=== PATIENT | female | born 1975 | race Caucasian/White ===

== ENCOUNTER 2022-09-15 17:59 | Inpatient (IN) | payer OTHER ==
[2022-09-15 18:05] VITALS: BMI 24.7
[2022-09-15 19:53] LABS: BASO % 0.4 % (0-2.0); EOS % 2.7 % (0-4.5); HEMATOCRIT 33.5 % (32.4-45.2); HEMOGLOBIN 10.9 GM/dL (10.7-15.3); LYMPH % 26.8 % (8-40); MCHC 32.6 g/dl (32.0-36.0); MEAN CELL VOLUME 82.9 fl (80-96); MEAN PLT VOLUME 8.6 fl (7.5-11.1); MONO % 5.2 % (3.8-10.2); NEUT % 64.9 % (42.8-82.8); RBC 4.04 M/mm3 (3.60-5.2); RDW 14.7 % (11.6-15.6); WHITE BLOOD COUNT 5.3 K/mm3 (4.0-10.0)
[2022-09-15 20:14] LABS: BLOOD UREA NITROGEN 24.5 mg/dL (7-18)
[2022-09-15 20:15] LABS: ALBUMIN 3.2 g/dl (3.4-5.0)
[2022-09-15 20:17] LABS: CREATININE 0.5 mg/dL (0.55-1.3)
[2022-09-15 20:19] LABS: BILIRUBIN,TOTAL 0.2 mg/dL (0.2-1); TOT PROT 7.6 g/dl (6.4-8.2)
[2022-09-15 20:22] LABS: N-TERMINAL BNP 81.2 pg/ml (5-125)
[2022-09-15 20:54] LABS: PLATELET COUNT 8 10^3/uL (134-434)
[2022-09-15 21:03] LABS: ERYTHROCYTE SEDIMENTATION RATE 74 mm/hr (0-20)
[2022-09-15 21:16] LABS: PH,URINE 5.5 (5.0-8.0); URINE APPEARANCE CLEAR; URINE BILIRUBIN NEGATIVE (NEGATIVE); URINE COLOR YELLOW; URINE GLUCOSE (UA) NEGATIVE (NEGATIVE); URINE KETONE NEGATIVE (NEGATIVE); URINE LEUK ESTERASE NEGATIVE (NEGATIVE); URINE NITRITE NEGATIVE (NEGATIVE); URINE PROTEIN NEGATIVE (NEGATIVE); URINE UROBILINOGEN 0.2 mg/dL (0.2-1.0)
[2022-09-15 21:37] LABS: INR 1.17 (0.83-1.09); PROTHROMBIN TIME (PATIENT) 13.5 SEC (9.7-13.0)
[2022-09-15 21:40] LABS: ACTIVATED PTT 28.5 SECONDS (25.2-36.5)
[2022-09-16] MEDS ORDERED: DEXAMETHASONE SOD PHOSPHATE 10 MG/1 ML VIAL IVPUSH ONE (00:53)
[2022-09-16] MEDS ORDERED: DEXAMETHASONE SOD PHOSPHATE 10 MG/1 ML VIAL ONE (01:41)
[2022-09-16 03:20] LABS: HEPATITIS B SURFACE AG MATERN NON-REACTIVE (NONREACTIVE)
[2022-09-16 03:48] LABS: HIV INTERPRETATION NEGATIVE (NEGATIVE)
[2022-09-16 09:34] LABS: HEMATOCRIT 34.6 % (32.4-45.2); HEMOGLOBIN 11.4 GM/dL (10.7-15.3); MCH 26.9 pg (25.7-33.7); MCHC 32.9 g/dl (32.0-36.0); MEAN CELL VOLUME 81.8 fl (80-96); RBC 4.23 M/mm3 (3.60-5.2); RDW 14.2 % (11.6-15.6); WHITE BLOOD COUNT 6.2 K/mm3 (4.0-10.0)
[2022-09-16 09:42] LABS: MEAN PLT VOLUME 8.7 fl (7.5-11.1)
[2022-09-16] MEDS ORDERED: ENOXAPARIN NA (PORCINE) 40 MG/0.4 ML DISP.SYRIN SQ SCH (10:00)
[2022-09-16] MEDS ORDERED: DEXAMETHASONE SOD PHOSPHATE 20 MG/5 ML VIAL IVPB SCH (10:00)
[2022-09-16 10:22] LABS: BLOOD UREA NITROGEN 15.2 mg/dL (7-18); CALCIUM 9.5 mg/dL (8.5-10.1)
[2022-09-16 10:23] LABS: ALBUMIN 3.3 g/dl (3.4-5.0)
[2022-09-16 10:26] LABS: CREATININE 0.6 mg/dL (0.55-1.3)
[2022-09-16 10:27] LABS: BILIRUBIN,TOTAL 0.6 mg/dL (0.2-1); TOT PROT 7.9 g/dl (6.4-8.2)
[2022-09-16 11:13] LABS: PLATELET COUNT 8 10^3/uL (134-434)
[2022-09-17 09:58] LABS: BASO % 0.2 % (0-2.0); EOS % 0.9 % (0-4.5); HEMATOCRIT 32.1 % (32.4-45.2); HEMOGLOBIN 10.4 GM/dL (10.7-15.3); LYMPH % 22.5 % (8-40); MCH 26.7 pg (25.7-33.7); MCHC 32.3 g/dl (32.0-36.0); MEAN CELL VOLUME 82.6 fl (80-96); MONO % 3.4 % (3.8-10.2); RBC 3.88 M/mm3 (3.60-5.2); RDW 14.5 % (11.6-15.6); WHITE BLOOD COUNT 7.6 K/mm3 (4.0-10.0)
[2022-09-17 10:01] LABS: MEAN PLT VOLUME 8.6 fl (7.5-11.1)
[2022-09-17 10:15] LABS: BLOOD UREA NITROGEN 16.5 mg/dL (7-18); CALCIUM 8.8 mg/dL (8.5-10.1)
[2022-09-17 10:18] LABS: CREATININE 0.7 mg/dL (0.55-1.3)
[2022-09-17] MEDS: DEXAMETHASONE SOD PHOSPHATE/PF 10 MG/ML SDV IVPB SCH (10:27)
[2022-09-17 10:40] LABS: HEPATITIS B SURFACE AG MATERN NON-REACTIVE (NONREACTIVE)
[2022-09-17] MEDS: POTASSIUM CHLORIDE TABS 20 MEQ TABLET.ER (FP) PO SCH (11:49)
[2022-09-17 12:00] LABS: PLATELET COUNT 7 10^3/uL (134-434)
[2022-09-17] MEDS: FAMOTIDINE 20 MG TABLET PO SCH (15:06)
[2022-09-17 15:23] LABS: MAGNESIUM 1.7 mg/dL (1.8-2.4)
[2022-09-17 15:26] LABS: PHOSPHOROUS 2.9 mg/dL (2.5-4.9)
[2022-09-17 15:47] LABS: ERYTHROCYTE SEDIMENTATION RATE 90 mm/hr (0-20)
[2022-09-18 08:33] LABS: BASO % 0.1 % (0-2.0); HEMATOCRIT 32.6 % (32.4-45.2); LYMPH % 24.8 % (8-40); MCH 27.5 pg (25.7-33.7); MCHC 33.6 g/dl (32.0-36.0); MEAN CELL VOLUME 81.8 fl (80-96); MONO % 4.6 % (3.8-10.2); NEUT % 70.5 % (42.8-82.8); RBC 3.99 M/mm3 (3.60-5.2); RDW 14.3 % (11.6-15.6); WHITE BLOOD COUNT 8.2 K/mm3 (4.0-10.0)
[2022-09-18 08:38] LABS: MEAN PLT VOLUME 10.5 fl (7.5-11.1)
[2022-09-18 09:14] LABS: CALCIUM 9.3 mg/dL (8.5-10.1)
[2022-09-18 09:17] LABS: CREATININE 0.4 mg/dL (0.55-1.3)
[2022-09-18 09:21] LABS: PLATELET COUNT 10 10^3/uL (134-434)
[2022-09-18] MEDS: FAMOTIDINE 20 MG TABLET PO SCH (09:42)
[2022-09-18] MEDS: POTASSIUM CHLORIDE TABS 20 MEQ TABLET.ER (FP) PO SCH (11:55)
[2022-09-18] MEDS: DEXAMETHASONE SOD PHOSPHATE/PF 10 MG/ML SDV IVPB SCH (12:00)
[2022-09-19 09:01] LABS: BASO % 0.1 % (0-2.0); HEMATOCRIT 35.3 % (32.4-45.2); HEMOGLOBIN 11.4 GM/dL (10.7-15.3); LYMPH % 24.6 % (8-40); MCHC 32.4 g/dl (32.0-36.0); MEAN CELL VOLUME 83.4 fl (80-96); NEUT % 72.3 % (42.8-82.8); RBC 4.23 M/mm3 (3.60-5.2); RDW 14.7 % (11.6-15.6); WHITE BLOOD COUNT 8.7 K/mm3 (4.0-10.0)
[2022-09-19 09:05] LABS: MEAN PLT VOLUME 8.6 fl (7.5-11.1)
[2022-09-19 09:28] LABS: ALBUMIN 3.2 g/dl (3.4-5.0); BLOOD UREA NITROGEN 18.6 mg/dL (7-18); CALCIUM 9.6 mg/dL (8.5-10.1)
[2022-09-19 09:31] LABS: CREATININE 0.6 mg/dL (0.55-1.3)
[2022-09-19 09:33] LABS: BILIRUBIN,TOTAL 0.2 mg/dL (0.2-1); TOT PROT 7.6 g/dl (6.4-8.2)
[2022-09-19 09:42] LABS: PLATELET COUNT 8 10^3/uL (134-434)
[2022-09-19] MEDS: FAMOTIDINE 20 MG TABLET PO SCH (09:46)
[2022-09-19] MEDS: POTASSIUM CHLORIDE TABS 20 MEQ TABLET.ER (FP) PO SCH (09:46)
[2022-09-19] MEDS: DEXAMETHASONE SOD PHOSPHATE/PF 10 MG/ML SDV IVPB SCH (09:49)
[2022-09-19 21:06] LABS: ATYPICAL pANCA <1:20 titer (Neg:<1:20); C-ANCA <1:20 titer (Neg:<1:20)
[2022-09-20 09:22] LABS: HEMATOCRIT 37.2 % (32.4-45.2); MCH 26.6 pg (25.7-33.7); MCHC 32.3 g/dl (32.0-36.0); MEAN CELL VOLUME 82.6 fl (80-96); MEAN PLT VOLUME 10.5 fl (7.5-11.1); RBC 4.51 M/mm3 (3.60-5.2); RDW 14.6 % (11.6-15.6); WHITE BLOOD COUNT 13.3 K/mm3 (4.0-10.0)
[2022-09-20 09:48] LABS: CALCIUM 9.2 mg/dL (8.5-10.1)
[2022-09-20 09:51] LABS: CREATININE 0.7 mg/dL (0.55-1.3)
[2022-09-20 09:59] LABS: PLATELET COUNT 26 10^3/uL (134-434)
[2022-09-20] MEDS: FAMOTIDINE 20 MG TABLET PO SCH (10:25)
[2022-09-20] MEDS: POTASSIUM CHLORIDE TABS 20 MEQ TABLET.ER (FP) PO SCH (10:25)
[2022-09-21 09:15] LABS: HEMATOCRIT 36.2 % (32.4-45.2); HEMOGLOBIN 12.1 GM/dL (10.7-15.3); MCH 27.4 pg (25.7-33.7); MCHC 33.4 g/dl (32.0-36.0); MEAN CELL VOLUME 82.1 fl (80-96); MEAN PLT VOLUME 10.8 fl (7.5-11.1); RBC 4.41 M/mm3 (3.60-5.2); RDW 14.5 % (11.6-15.6)
[2022-09-21 09:35] LABS: PLATELET COUNT 21 10^3/uL (134-434)
[2022-09-21 09:36] LABS: CALCIUM 8.9 mg/dL (8.5-10.1)
[2022-09-21 09:37] LABS: BLOOD UREA NITROGEN 18.1 mg/dL (7-18)
[2022-09-21 09:40] LABS: CREATININE 0.6 mg/dL (0.55-1.3)
[2022-09-21 09:41] LABS: BILIRUBIN,TOTAL 0.2 mg/dL (0.2-1); TOT PROT 6.8 g/dl (6.4-8.2)
[2022-09-21 10:08] LABS: ANISOCYTOSIS 0; HELMET CELLS 0; HOWELL-JOLLY BODIES 0; MACROCYTOSIS 0; OVALOCYTE 0; ROULEAU 0; SICKELED CELLS 0; TARGET CELLS 0; TEAR DROP CELLS 0; TOXIC GRANULATION 0
[2022-09-21] MEDS: POTASSIUM CHLORIDE TABS 20 MEQ TABLET.ER (FP) PO SCH (10:27)
[2022-09-21] MEDS: FAMOTIDINE 20 MG TABLET PO SCH (10:27)
[2022-09-21] MEDS: DEXAMETHASONE SOD PHOSPHATE 10 MG/1 ML VIAL IVPB SCH (19:46)
[2022-09-22] MEDS: FAMOTIDINE 20 MG TABLET PO SCH (09:08)
[2022-09-22] MEDS: POTASSIUM CHLORIDE TABS 20 MEQ TABLET.ER (FP) PO SCH (09:08)
[2022-09-22 16:35] LABS: BASO % 0.2 % (0-2.0); HEMATOCRIT 32.9 % (32.4-45.2); HEMOGLOBIN 10.9 GM/dL (10.7-15.3); LYMPH % 15.9 % (8-40); MCH 27.3 pg (25.7-33.7); MCHC 33.2 g/dl (32.0-36.0); MEAN CELL VOLUME 82.2 fl (80-96); MEAN PLT VOLUME 12.6 fl (7.5-11.1); NEUT % 77.9 % (42.8-82.8); RDW 14.3 % (11.6-15.6); WHITE BLOOD COUNT 10.6 K/mm3 (4.0-10.0)
[2022-09-22 16:41] LABS: PLATELET COUNT 36 10^3/uL (134-434)
[2022-09-22 16:46] LABS: CALCIUM 8.7 mg/dL (8.5-10.1)
[2022-09-22 16:47] LABS: ALBUMIN 2.9 g/dl (3.4-5.0); BLOOD UREA NITROGEN 18.5 mg/dL (7-18)
[2022-09-22 16:50] LABS: CREATININE 0.6 mg/dL (0.55-1.3)
[2022-09-22 16:52] LABS: BILIRUBIN,TOTAL 0.2 mg/dL (0.2-1); TOT PROT 6.7 g/dl (6.4-8.2)
[2022-09-22] MEDS: DEXAMETHASONE SOD PHOSPHATE 10 MG/1 ML VIAL IVPB SCH ×2 (18:54→19:11)
[2022-09-23 09:25] LABS: BASO % 0.1 % (0-2.0); HEMATOCRIT 35.3 % (32.4-45.2); HEMOGLOBIN 11.9 GM/dL (10.7-15.3); LYMPH % 15.1 % (8-40); MCH 27.9 pg (25.7-33.7); MCHC 33.7 g/dl (32.0-36.0); MEAN CELL VOLUME 82.7 fl (80-96); MEAN PLT VOLUME 11.2 fl (7.5-11.1); MONO % 2.7 % (3.8-10.2); NEUT % 82.1 % (42.8-82.8); RBC 4.26 M/mm3 (3.60-5.2); RDW 14.3 % (11.6-15.6); WHITE BLOOD COUNT 9.1 K/mm3 (4.0-10.0)
[2022-09-23 09:33] LABS: PLATELET COUNT 33 10^3/uL (134-434)
[2022-09-23] MEDS: POTASSIUM CHLORIDE TABS 20 MEQ TABLET.ER (FP) PO SCH ×2 (10:11→11:18)
[2022-09-23] MEDS: FAMOTIDINE 20 MG TABLET PO SCH (10:11)
[2022-09-23 10:33] LABS: ALBUMIN 3.3 g/dl (3.4-5.0); BLOOD UREA NITROGEN 18.1 mg/dL (7-18); CALCIUM 9.2 mg/dL (8.5-10.1)
[2022-09-23 10:36] LABS: CREATININE 0.7 mg/dL (0.55-1.3)
[2022-09-23 10:37] LABS: BILIRUBIN,TOTAL 0.3 mg/dL (0.2-1); TOT PROT 7.6 g/dl (6.4-8.2)
[2022-09-23 14:09] LABS: PARV B19 IGG 4.2 index (0.0-0.8); PARV B19 IGM 0.2 index (0.0-0.8)
[2022-09-23] MEDS: DEXAMETHASONE SOD PHOSPHATE 10 MG/1 ML VIAL IVPB SCH (18:39)
[2022-09-24 08:47] LABS: ALBUMIN 3.2 g/dl (3.4-5.0); BLOOD UREA NITROGEN 19.2 mg/dL (7-18)
[2022-09-24 08:50] LABS: CREATININE 0.6 mg/dL (0.55-1.3)
[2022-09-24 08:52] LABS: BILIRUBIN,TOTAL 0.5 mg/dL (0.2-1); TOT PROT 7.5 g/dl (6.4-8.2)
[2022-09-24] MEDS: POTASSIUM CHLORIDE TABS 20 MEQ TABLET.ER (FP) PO SCH ×2 (09:01→10:50)
[2022-09-24] MEDS: FAMOTIDINE 20 MG TABLET PO SCH (09:01)
[2022-09-24 09:06] LABS: HEMATOCRIT 34.9 % (32.4-45.2); HEMOGLOBIN 11.7 GM/dL (10.7-15.3); MCH 27.5 pg (25.7-33.7); MCHC 33.4 g/dl (32.0-36.0); MEAN CELL VOLUME 82.3 fl (80-96); MEAN PLT VOLUME 12.8 fl (7.5-11.1); PLATELET COUNT 48 10^3/uL (134-434); RBC 4.24 M/mm3 (3.60-5.2); RDW 14.8 % (11.6-15.6); WHITE BLOOD COUNT 9.1 K/mm3 (4.0-10.0)
[2022-09-24 10:45] LABS: ANISOCYTOSIS 0; MACROCYTOSIS 0
[2022-09-24] MEDS: DEXAMETHASONE SOD PHOSPHATE 10 MG/1 ML VIAL IVPB SCH ×2 (22:21→22:28)
[2022-09-24] MEDS ORDERED: DEXAMETHASONE SOD PHOSPHATE 10 MG/1 ML VIAL ONE (22:25)
[2022-09-25] MEDS: FAMOTIDINE 20 MG TABLET PO SCH (09:20)
[2022-09-25 09:25] LABS: HEMATOCRIT 37.4 % (32.4-45.2); HEMOGLOBIN 12.5 GM/dL (10.7-15.3); RBC 4.54 M/mm3 (3.60-5.2); WHITE BLOOD COUNT 7.6 K/mm3 (4.0-10.0)
[2022-09-25 09:26] LABS: BASO % 0.2 % (0-2.0); EOS % 0.3 % (0-4.5); LYMPH % 24.6 % (8-40); MCH 27.5 pg (25.7-33.7); MCHC 33.3 g/dl (32.0-36.0); MEAN CELL VOLUME 82.5 fl (80-96); MONO % 1.5 % (3.8-10.2); NEUT % 73.4 % (42.8-82.8)
[2022-09-25 09:28] LABS: MEAN PLT VOLUME 12.8 fl (7.5-11.1); PLATELET COUNT 71 10^3/uL (134-434)
[2022-09-25] MEDS: POTASSIUM CHLORIDE TABS 20 MEQ TABLET.ER (FP) PO SCH (11:23)
[2022-09-25 11:37] LABS: PLATELET ESTIMATE ADEQUATE
[2022-09-25] MEDS: ACETAMINOPHEN 325 MG TABLET (FP) PO PRN (22:43)
[2022-09-26 09:12] LABS: HEMATOCRIT 35.9 % (32.4-45.2); HEMOGLOBIN 11.8 GM/dL (10.7-15.3); MCH 27.3 pg (25.7-33.7); MCHC 32.9 g/dl (32.0-36.0); MEAN CELL VOLUME 83.1 fl (80-96); MEAN PLT VOLUME 13.8 fl (7.5-11.1); PLATELET COUNT 80 10^3/uL (134-434); RBC 4.32 M/mm3 (3.60-5.2); RDW 15.2 % (11.6-15.6); WHITE BLOOD COUNT 10.8 K/mm3 (4.0-10.0)
[2022-09-26] MEDS: FAMOTIDINE 20 MG TABLET PO SCH (09:48)
[2022-09-26] MEDS: POTASSIUM CHLORIDE TABS 20 MEQ TABLET.ER (FP) PO SCH (09:48)
[2022-09-26 10:35] LABS: ANISOCYTOSIS 0; HELMET CELLS 0; HOWELL-JOLLY BODIES 0; MACROCYTOSIS 0; OVALOCYTE 0; ROULEAU 0; SICKELED CELLS 0; TARGET CELLS 0; TEAR DROP CELLS 0; TOXIC GRANULATION 0
[2022-09-26 10:39] LABS: ALBUMIN 2.9 g/dl (3.4-5.0); BLOOD UREA NITROGEN 21.3 mg/dL (7-18)
[2022-09-26 10:42] LABS: CREATININE 0.6 mg/dL (0.55-1.3)
[2022-09-26 10:43] LABS: BILIRUBIN,TOTAL 0.6 mg/dL (0.2-1); CALCIUM 8.5 mg/dL (8.5-10.1); TOT PROT 6.6 g/dl (6.4-8.2)
[2022-09-26] MEDS ORDERED: LIDOCAINE 5% TOPICAL PATCH TP ONE ×2 (12:45→15:48)
[2022-09-26 15:39] VITALS: RESP 20
[2022-09-26] MEDS: ACETAMINOPHEN 325 MG TABLET (FP) PO PRN (17:33)
[2022-09-26] MEDS ORDERED: LIDOCAINE PATCH REMOVAL MC SCH ×2 (22:00)
[2022-09-27 08:50] LABS: BASO % 0.2 % (0-2.0); HEMATOCRIT 38.1 % (32.4-45.2); HEMOGLOBIN 12.6 GM/dL (10.7-15.3); LYMPH % 44.7 % (8-40); MCH 27.5 pg (25.7-33.7); MCHC 33.1 g/dl (32.0-36.0); MEAN PLT VOLUME 11.7 fl (7.5-11.1); MONO % 7.5 % (3.8-10.2); NEUT % 46.6 % (42.8-82.8); PLATELET COUNT 88 10^3/uL (134-434); RBC 4.59 M/mm3 (3.60-5.2); RDW 15.3 % (11.6-15.6); WHITE BLOOD COUNT 7.6 K/mm3 (4.0-10.0)
[2022-09-27 09:14] LABS: BLOOD UREA NITROGEN 17.4 mg/dL (7-18)
[2022-09-27 09:15] LABS: MAGNESIUM 2.4 mg/dL (1.8-2.4)
[2022-09-27] MEDS: FAMOTIDINE 20 MG TABLET PO SCH (09:16)
[2022-09-27] MEDS: LIDOCAINE 5% TOPICAL PATCH TP SCH (09:16)
[2022-09-27] MEDS: POTASSIUM CHLORIDE TABS 20 MEQ TABLET.ER (FP) PO SCH (09:16)
[2022-09-27 09:17] LABS: CREATININE 0.7 mg/dL (0.55-1.3)
[2022-09-27 09:19] LABS: BILIRUBIN,TOTAL 0.4 mg/dL (0.2-1); TOT PROT 6.9 g/dl (6.4-8.2)
[2022-09-27] MEDS ORDERED: LIDOCAINE 5% TOPICAL PATCH TP SCH (10:00)
[2022-09-27] MEDS ORDERED: LIDOCAINE PATCH REMOVAL MC SCH (22:00)
[2022-09-28 10:11] LABS: BASO % 0.1 % (0-2.0); EOS % 1.5 % (0-4.5); HEMATOCRIT 34.7 % (32.4-45.2); HEMOGLOBIN 11.6 GM/dL (10.7-15.3); LYMPH % 26.6 % (8-40); MCH 27.7 pg (25.7-33.7); MCHC 33.4 g/dl (32.0-36.0); MEAN CELL VOLUME 82.8 fl (80-96); MEAN PLT VOLUME 11.9 fl (7.5-11.1); MONO % 8.1 % (3.8-10.2); NEUT % 63.7 % (42.8-82.8); PLATELET COUNT 70 10^3/uL (134-434); RBC 4.18 M/mm3 (3.60-5.2); WHITE BLOOD COUNT 6.4 K/mm3 (4.0-10.0)
[2022-09-28] MEDS: FAMOTIDINE 20 MG TABLET PO SCH (10:20)
[2022-09-28] MEDS: LIDOCAINE 5% TOPICAL PATCH TP SCH (10:20)
[2022-09-28] MEDS: POTASSIUM CHLORIDE TABS 20 MEQ TABLET.ER (FP) PO SCH (10:20)
[2022-09-28 10:26] LABS: ALBUMIN 2.8 g/dl (3.4-5.0); CALCIUM 8.6 mg/dL (8.5-10.1); CREATININE 0.7 mg/dL (0.55-1.3); MAGNESIUM 2.3 mg/dL (1.8-2.4)
[2022-09-28 10:27] LABS: BILIRUBIN,TOTAL 0.3 mg/dL (0.2-1)
[2022-09-28 15:50] VITALS: BP 109/65; PULSE 93; TEMP 97.8
== END 2022-09-28 19:06 | disposition home or self-care (01) | DRG 813 ==
LOC: JER 17:59 → JERBED 09-16 02:53 → J5S 09-16 04:22 → J8W 09-25 15:34
PROVIDERS: ADMIT Internal Medicine; ATTEND Nurse Practitioner Family
DX: D69.6 Thrombocytopenia, unspecified (principal); J18.9 Pneumonia, unspecified organism; J90 Pleural effusion, not elsewhere classified; J98.11 Atelectasis; M25.50 Pain in unspecified joint; R21 Rash and other nonspecific skin eruption; D69.3 Immune thrombocytopenic purpura
CPT/HCPCS: 36415; 70450-TC; 71045-TC-FY; 71046-TC-FY; 71275-TC; 73070-TC-LT-FY; 73070-TC-RT-FY; 73110-TC-LT-FY; 73110-TC-RT-FY; 73130-TC-LT-FY; 73130-TC-RT-FY; 73564-TC-LT-FY; 73564-TC-RT-FY; 76700-TC; 80048; 80053; 81003; 82553; 82962; 83520; 83615; 83735; 83880; 84100; 84484; 84703; 85025; 85027; 85379; 85384; 85610; 85613; 85651; 85730; 85732; 86038; 86140; 86160; 86225; 86235; 86256; 86431; 86480; 86677; 86705; 86708; 86747; 86790; 86850; 86900; 86901; 87040; 87070; 87116; 87205; 87206; 87207; 87340; 87389; 87517; 87522; 87556; 93005; 93010; 93306-TC; 93970-TC; 99285-25; C9803-CS; J1100; Q9967; U0003; U0005